=== PATIENT | female | born 1990 | race Caucasian/White ===

== ENCOUNTER 2020-10-27 13:34 | Emergency (ER) | payer MEDICAID ==
[~2020-10-27] VITALS: Ht 154.9 cm; Wt 114.5 kg
[~2020-10-27 13:34] MED LIST: ALBU18HF2 IH; IBUP-1574 PO; METH4TAB81 PO; NO HOME MEDS
[2020-10-27 13:57] VITALS: BP 145/95
--- NOTE | 2020-10-27 15:16 | NUR ---
Patient stated "she knows we are all d*cking her around", threw her BP cuff at the screener (this policy writer typist) and walked out of the ER lobby.
== END 2020-10-27 15:28 | disposition left against medical advice (07) ==
LOC: ER 13:34
DX: K04.7 Periapical abscess without sinus (principal); Z53.21 Procedure and treatment not carried out due to patient leaving prior to being seen by health care provider
CPT/HCPCS: 99281

== ENCOUNTER 2024-07-29 10:46 | Outpatient (CLI) | payer MEDICAID ==
--- NOTE | 2024-07-29 12:51 | [facility] CONSULT REPORT ---
[facility] Procedure Note [facility] Procedure Note Consult [facility] Note # Demographics Type of EEG Read: - Routine EEG - video Patient Location: Outpatient First Name: BREONNA Last Name: NIMISHA Date of : 1990 Age: 34 Gender: Female Facility: [facility] Time of Initial Page ([place] ): 07/29/2024 12:18 Time of Return Call ([place] Time): 07/29/2024 12:18 # EEG Interpretation Start Time of EEG Read (): 07/29/2024 12:23 Stop Time of EEG Read ([place] ): 07/29/2024 12:45 Duration: 0h 22m Technical Details: - The EEG electrodes were placed using the standard International 10-20 system of electrode placement. Video and an accessory EKG lead were used during the course of this study. - This study was recorded using the TopOP[employer] EEG software Indication: Possible seizure # Description Photic Stimulation: Performed Hyperventilation: performed Phases Captured: - awake - drowsy - sleep Symmetry: symmetric Posterior Dominant Rhythm: The record is continuous, of normal amplitude and bilaterally symmetrical. There is a well-developed posterior dominant rhythm at 10-12 Hz. There is a moderate amount of diffuse low amplitude 15-25 Hz beta activity and an appropriate amount of 4-7 Hz theta activity during wakefulness. No significant <4 Hz delta activity is present during wakefulness. With drowsiness, there is attenuation of the background alpha activity and a shift to slower frequencies. Amplitude: normal Reactivity: yes Variability: yes Continuity: continuous EKG: NSR # Abnormalities Epileptiform Abnormalities: - NOT present Focal Slowing: no Seizure: - NOT present No push button events # Impression Impression: normal # Clinical Correlation Clinical Correlation: A normal EEG does not exclude nor support the diagnosis of epilepsy. Additional Comments: Clinical correlation is recommended # Demographics First Name: BREONNA Last Name: NIMISHA Facility: [facility] MARIELA CARLSON MD Jul 29, 2024 12:51
== END 2024-07-29 23:59 | disposition home or self-care (01) ==
LOC: RAD 10:46
PROVIDERS: ATTEND Physician Assistant Medical
DX: R55 Syncope and collapse (principal)
CPT/HCPCS: 95816

== ENCOUNTER 2024-10-23 15:42 | Emergency (ER) | payer MEDICAID ==
[~2024-10-23] VITALS: Ht 157.5 cm; Wt 142.0 kg
[2024-10-23 15:45] VITALS: BP 139/77; PULSE 94; RESP 18; TEMP 98.3; O2SAT 99
[2024-10-23 16:28] LABS: MEAN PLATELET VOLUME 10.1 FL (7.4-10.4); RED CELL DISTRIBUTION WIDTH 16.1 % (11.5-14.5)
[2024-10-23 16:43] LABS: CREATININE 0.92 MG/DL (0.40-0.90); TOTAL CARBON DIOXIDE 26.6 MMOL/L (24-32); eCRCL 68 ML/MIN; eGFR 69 ML/MIN
--- NOTE | 2024-10-25 18:19 | Physician Documentation ---
History of Present Illness ~ Chief Complaint: Bloody Stools Stated Complaint: POSS INTERNAL BLEEDING Time Seen by MD: 19:00 OK to notify your PCP?: Yes Primary Medical Doctor: [facility] Source: patient Mode of Arrival: POV Exam Limitations: no limitations HPI 34 y/o female here with left lower quadrant abdominal pain and brbpr x a few days. Normal has about 2-3BM per day and this is unchanged since symptoms started. No increase in her stools or decrease. Only changes in BM is that she has painless BRBPR. Went to see PCP and was sent to ER. Patient concerned about "internal bleeding." No fever, chills, lightheadedness. Medication Reconciliation Allergies: Coded Allergies: Penicillins (Verified Allergy, Unknown, 10/23/24) Scheduled Albuterol Sulfate (Ventolin Hfa), 2 PUFFS IH 5XD Ibuprofen (Ibuprofen), 800 MG PO Q6H Methylprednisolone (Medrol Dosepak), 4 MG PO DAILY Miscellaneous Medications Home Med List (No Home Medications), (Reported) Past Medical History Past Medical History: Asthma, Bronchitis, Sleep Apnea, Anemia, Anxiety, Depression Past Surgical History: no surgical history Smoking Status: Unknown if ever smoked Alcohol Use: None Drug Use: marijuana Lives In: Home Review of Systems All Other Systems at this time: Reviewed and Negative Physical Exam Vital Signs: Temperature: 98.3, Heart Rate: 94, Respiratory Rate: 18, BP: 139/77, Pulse Oximetry: 99, Weight: 142.000 Oxygen Flow Rate: 0 Physical Exam General Appearance: Alert, WD/WN. NAD. HEENT: NCAT, PERRL, EOMI. Neck: Supple, trachea midline. Lungs: Breathing unlabored ABD; SOFT, ND, TTP IN LEFT UPPER AND LOWER QUADRANTS. NEGATIVE TERRAZAS'S SIGN. NO GUARDING OR REBOUND. Extremities: Normal inspection. No edema. Skin: Warm/dry, normal color Neurological: Alert and oriented x4 Psychiatric: Affect congruent with mood. Progress Results/Orders Results/Orders Orders - MILLA PLUNKETT Straight Cath For Urine Sample (10/23/24 15:57) Completed Orders - MILLA PLUNKETT Cbc/Diff (10/23/24 15:57) BMP (10/23/24 15:57) Vital Signs 10/23/24 15:45 Temp 98.3 Pulse 94 Resp 18 B/P (MAP) 139/77 Pulse Ox 99 O2 Flow Rate 0 Laboratory Tests Test 10/23/24 16:21 White Blood Count 9.8 Red Blood Count 4.77 Hemoglobin 12.0 Hematocrit 37.0 Mean Corpuscular Volume 77.6 L Mean Corpuscular Hemoglobin 25.2 L Mean Corpuscular Hemoglobin Concent 32.5 L Red Cell Distribution Width 16.1 H Platelet Count 189 Mean Platelet Volume 10.1 Neutrophils (%) (Auto) 68.1 Lymphocytes (%) (Auto) 23.5 Monocytes (%) (Auto) 4.7 Eosinophils (%) (Auto) 3.3 Basophils (%) (Auto) 0.4 Neutrophils # (Auto) 6.7 Lymphocytes # (Auto) 2.3 Monocytes # (Auto) 0.5 Eosinophils # (Auto) 0.3 Basophils # (Auto) 0.0 CBC Comment Sodium Level 140 Potassium Level 3.7 Chloride Level 104 Carbon Dioxide Level 26.6 Anion Gap 9 Blood Urea Nitrogen 7 Creatinine 0.92 H Estimated GFR/1.73 m2 69 BUN/Creatinine Ratio 7.6 L Glucose Level 163 H Calcium Level 9.1 Albumin 3.4 Chemistry Comments Medical Decision Making Diff Dx Pain:Considerations: Include: AAA, -Complete, - Incomplete, -Inevitable, -Missed, -Threatened, Abruptio placentae, Angina/AR, Aortic dissection, Appendicitis, Bowel obstruction, Cholangitis, Cholecystitis, Cholelithasis, Constipation, Diverticular disease, Dysmenorrhea, Ectopic , Esophageal rupture, Esophagitis, Gastritis/PUD, Gastroenteritis, GI hemorrhage, Hernia, Hepatitis, Inflammatory BD, Ischemic bowel, Mass, Ovarian cyst/torsion, Pancreatitis, PID, Porphyria, Trauma, intraabdominal, Urinary obstruction, Urinary tract infection, Urolithiasis Departure Disposition: LEFT AGAINST MEDICAL ADVICE Impression: Primary Impression: Abdominal pain Qualified Codes: R10.9 - Unspecified abdominal pain Additional Impression: BRBPR (bright red blood per rectum) Condition: Fair Additional Instructions: PATIENT LEFT PRIOR TO GETTING A ROOM IN THE BACK, I EVALUATED HER IN TRIAGE ROOM Referrals: NO PRIMARY CARE PROVIDER (PCP) Education Educated: Patient Educated regarding: diagnosis, treatment, need for follow up Signature Scribe Signature: X Attestation: MILLA CISSE Oct 25, 2024 18:19
== END 2024-10-23 20:02 | disposition left against medical advice (07) ==
LOC: ER 15:42
DX: R10.32 Left lower quadrant pain (principal); K62.5 Hemorrhage of anus and rectum; J45.909 Unspecified asthma, uncomplicated; G47.30 Sleep apnea, unspecified; F12.90 Cannabis use, unspecified, uncomplicated; D64.9 Anemia, unspecified; F41.9 Anxiety disorder, unspecified; F32.A Depression, unspecified; Z88.0 Allergy status to penicillin; Z79.899 Other long term (current) drug therapy; Z53.21 Procedure and treatment not carried out due to patient leaving prior to being seen by health care provider
CPT/HCPCS: 36415; 80048; 81003; 81025; 85025